=== PATIENT | female | born 1995 | race Two or more races ===

== ENCOUNTER 2024-02-12 17:51 | Emergency (ER) | payer OTHER ==
[~2024-02-12] VITALS: Ht 162.6 cm; Wt 52.2 kg
[2024-02-12 18:00] VITALS: BP 114/63; O2SAT 100
[2024-02-12 20:00] LABS: HEMATOCRIT 36.5 % (36.0-45.00); HEMOGLOBIN 12.8 g/dL (12.0-15.00); MEAN CELL VOLUME 93.3 fL (80.00-100.00); MEAN CORPUSCULAR HEMOGLOBIN 32.6 pg (27.00-32.0); PLATELET COUNT 275 K/uL (150-450); RED BLOOD COUNT 3.91 M/uL (4.00-6.00); RED CELL DISTRIBUTION WIDTH 13.1 % (11.5-14.5)
[2024-02-12 20:29] LABS: PH,URINE 6.5 (5.0-8.0); URINE APPEARANCE Clear; URINE BILIRRUBIN Negative (NEGATIVE); URINE BLOOD Negative; URINE COLOR Yellow; URINE GLUCOSE Negative (NEGATIVE); URINE KETONE Negative (NEGATIVE); URINE LEUKOCYTE Large; URINE NITRATE Negative; URINE PROTEIN Negative (NEGATIVE); URINE UROBILINOGEN 0.2 E.U./dl
[2024-02-12 20:32] LABS: URINE EPITHELIAL CELLS 38.6 uL (0.0-38.8)
[2024-02-12 20:39] LABS: URINE CAST 0.45 uL (0.0-1.40); URINE RBC 1.2 uL (0.0-20.8)
[2024-02-12] MEDS ORDERED: FLUCONAZOLE150 MG PO (21:41)
[2024-02-12] MEDS ORDERED: MACROBID 100 M100 MG PO (21:43)
== END 2024-02-12 22:17 | disposition home or self-care (01) ==
LOC: ER 17:52
PROVIDERS: Nurse Practitioner Family
DX: N39.0 Urinary tract infection, site not specified (principal); R10.2 Pelvic and perineal pain; Z88.8 Allergy status to other drugs, medicaments and biological substances; B37.89 Other sites of candidiasis